=== PATIENT | male | born 1950 | race Caucasian/White ===

== ENCOUNTER 2019-06-06 14:02 | Outpatient (CLI) | payer MEDICARE, OTHER, SELFPAY ==
--- NOTE | 2019-06-09 19:50 | WPDPFTINT ---
PFT Interpretation PFT Interpretation: DOS: 06/06/2019 REQUESTING: Dr. Mcpherson REASON FOR TESTING: Shortness of breath PULMONARY FUNCTION TESTS Patient showed reproducible and reliable results. Spirometry: Normal FEV1, 83%, 1.98 L. Normal FVC, 110%. The FEV1% is reduced 52% predicted. Extremely low AFQ35-66% at 25% predicted. There is no significant response to bronchodilator. Lung volumes: Moderate hyperinflation TLC 150%, severe air trapping RV 177%. Increased airway resistance 219%. Diffusion: DLCO is normal. 98%. Flow volume loop: Scooping of the expiratory limb. IMPRESSION: Mild obstructive ventilatory impairment, severe in the small airways, moderate hyperinflation, severe air trapping without response to bronchodilator. [place] of response to bronchodilator should not preclude use if clinically indicated. Valencia Wiley MD
== END 2019-06-06 14:03 | disposition home or self-care (01) ==
PROVIDERS: PCP Family Medicine; Visit Provider Internal Medicine Critical Care Medicine
DX: J44.9 Chronic obstructive pulmonary disease, unspecified (principal); R94.2 Abnormal results of pulmonary function studies
CPT/HCPCS: 94060; 94726; 94729

== ENCOUNTER 2022-07-11 09:49 | Outpatient (CLI) | payer MEDICARE, OTHER, SELFPAY | END 2022-07-11 09:50 | disposition home or self-care (01) | LOC: ANHAUDIO 09:50 | PROVIDERS: PCP Family Medicine; Visit Provider Family Medicine | DX: H90.3 Sensorineural hearing loss, bilateral (principal) | CPT/HCPCS: 92557; 92567 ==

== ENCOUNTER 2022-08-08 11:00 | Outpatient (RCR) | payer MEDICARE, OTHER, SELFPAY | END 2022-08-31 15:06 | disposition other institution (70) | LOC: ANHAUDIO 11:00 | PROVIDERS: PCP Family Medicine; Visit Provider Family Medicine | DX: Z46.1 Encounter for fitting and adjustment of hearing aid (principal) | CPT/HCPCS: 99199; V5261 ==